=== PATIENT | female | born 1980 | race Caucasian/White ===

== ENCOUNTER 2018-07-27 10:46 | Emergency (ER) | payer SELFPAY ==
[~2018-07-27] VITALS: Ht 167.6 cm; Wt 60.0 kg
[2018-07-27] MEDS ORDERED: FLUO-124 PO (10:56)
[2018-07-27] MEDS ORDERED: QUET200T29 PO (10:56)
[2018-07-27] MEDS ORDERED: VISCOUS LIDOCAINE 2% 15 ML UDC PO STA (11:54)
[2018-07-27] MEDS ORDERED: MAGNESIUM/ALUMINUM HYDROXIDE/SIMETHICONE 30ML UDC PO STA (11:54)
[2018-07-27 12:25] LABS: CLARITY URINE CLEAR (CLEAR); COLOR URINE YELLOW (YELLOW); KETONES URINE NEGATIVE (NEGATIVE); LEUKOCYTE ESTERASE URINE TRACE (NEGATIVE); NITRITE URINE NEGATIVE (NEGATIVE); OCCULT BLOOD URINE NEGATIVE (NEGATIVE); PROTEIN URINE NEGATIVE (NEGATIVE); SPECIFIC GRAVITY URINE 1.007 (1.005-1.030); UROBILINOGEN URINE 0.2 E.U./dL (0.2-1.0)
[2018-07-27 12:25] LABS: EOSINOPHILS % 2.2 % (0.0-5.0); HEMATOCRIT. 39.5 % (36.0-48.0); HEMOGLOBIN. 13.8 g/dL (12.0-16.0); LYMPHOCYTES % 22.1 % (20.0-50.0); MEAN CORPUSCULAR HEMOGLOBIN 31.6 pg (28.0-32.0); MEAN CORPUSCULAR VOLUME 90.2 fL (81.0-99.0); MEAN PLATELET VOLUME 7.1 fl (7.4-10.4); MONOCYTES % 7.9 % (2.0-8.0); NEUTROPHILS % 66.8 % (40.0-76.0); PLATELET 292 x1000/uL (130-400); RED BLOOD CELL COUNT 4.37 mill/uL (4.2-5.4); RED CELL DISTRIBUTION WIDTH 12.3 % (11.6-14.6)
[2018-07-27 12:31] LABS: CHLORIDE 105 mEq/L (98-107)
[2018-07-27 14:15] LABS: ETHANOL BLOOD < 10 mg/dL
[2018-07-27 19:06] LABS: *BENZODIAZEPINES SCREEN URINE NEGATIVE (NEGATIVE); *COCAINE SCREEN URINE NEGATIVE (NEGATIVE)
[2018-07-27 19:07] LABS: *AMPHETAMINES SCREEN URINE NEGATIVE (NEGATIVE); *BARBITURATES SCREEN URINE NEGATIVE (NEGATIVE); CANNABINOID URINE SCREEN NEGATIVE (NEGATIVE); METHADONE URINE SCREEN NEGATIVE (NEGATIVE); OPIATES URINE SCREEN NEGATIVE (NEGATIVE); PHENCYCLIDINE URINE SCREEN NEGATIVE (NEGATIVE)
[2018-07-28] MEDS ORDERED: DIPHENHYDRAMINE 50MG CAPSULE PO ONE (02:30)
[2018-07-28 17:15] VITALS: BP 105/73
== END 2018-07-28 18:13 | disposition home or self-care (01) ==
LOC: ER 10:46
DX: F29 Unspecified psychosis not due to a substance or known physiological condition (principal); F31.9 Bipolar disorder, unspecified; F20.9 Schizophrenia, unspecified
CPT/HCPCS: 36415; 71045; 80053; 80305; 80307; 80329; 81003; 81025; 83690; 85025; 93005; 99285; G0482; Q0163